=== PATIENT | male | born 1945 | race Caucasian/White ===

== ENCOUNTER 2017-03-31 05:48 | Inpatient (IN) | payer MEDICARE, BC ==
[2017-03-30 10:40] VITALS: BMI 26.9
[~2017-03-31] VITALS: Ht 188 cm; Wt 96.9 kg
[2017-03-31] VITALS (17 sets, daily range): BP systolic 98–133; BP diastolic 55–73; PULSE 62–78; RESP 14–18; Ht 188 cm; Wt 96.9 kg
[2017-03-31] MEDS ORDERED: LACTATED RINGER'S 1,000 ML IV* SCH (06:00)
[2017-03-31] MEDS ORDERED: TRANEXAMIC ACID 1,000 MG in SOD CHLORIDE 0.9% 100 ML IV ONE ×2 (06:00→08:30)
[2017-03-31] MEDS ORDERED: CEFAZOLIN 2 GM/50 ML (PMX) 50 ML IVPB SCH (06:00)
[2017-03-31] MEDS ORDERED: ALBU18HF INHALATION (06:32)
[2017-03-31] MEDS ORDERED: ATOR10TA65 PO (06:32)
[2017-03-31] MEDS ORDERED: LEVO175T2 PO (06:32)
[2017-03-31] MEDS ORDERED: MIDAZOLAM 1 MG/ML 2 ML INJ ONE (06:49)
[2017-03-31] MEDS ORDERED: FENTAnyl 50 MCG/ML VIAL ONE (06:49)
[2017-03-31] MEDS ORDERED: ROCURONIUM 50 MG INJ ONE ×2 (07:00→07:28)
[2017-03-31] MEDS ORDERED: LIDOCAINE 2% (SDV) 5 ML INJ ONE (07:00)
--- NOTE | 2017-03-31 07:04 | HPN ---
Date/Time of Note Date/Time of Note DATE: 03/31/17 TIME: 07:03 Interval H&P Admission Note Pt. seen H&P reviewed: No system changes VEGA AUSTIN MD Mar 31, 2017 07:04
[2017-03-31] MEDS: LACTATED RINGER'S 1,000 ML IV SCH ×3 (07:05→22:07)
[2017-03-31] MEDS ORDERED: POLYMYXIN/BACITRACIN 1L IRRIG ONE (07:11)
[2017-03-31] MEDS ORDERED: PROPOFOL 20 ML ONE (07:28)
--- NOTE | 2017-03-31 07:28 | PDOCDIS ---
Discharge Instructions DIAGNOSIS Discharge Diagnosis S/P RIGHT TOTAL SHOULDER ARTHROPLASTY CONDITION Patient Condition: Stable HOME CARE INSTRUCTIONS: Diet Instructions: Regular ACTIVITY: Activity Restrictions: Rest between Activity Avoid heavy lifting No Weight Bearing Bathing Restrictions: ShowerActivity Restrictions Comment: NO LIFT WITH SURGICAL ARM. MUST WEAR SLING IN PUBLIC & WHILE SLEEPING X 6WK FOLLOW UP/APPOINTMENTS Follow-up Plan SCHEDULED PREOPERATIVELY WITH DR AUSTIN, 1-2 WEEKS VEGA AUSTIN MD Mar 31, 2017 07:28
[2017-03-31] MEDS ORDERED: HYDROmorphONE 1 MG/ML SYG IV PRN (08:00)
[2017-03-31] MEDS ORDERED: ONDANSETRON 4 MG INJ IV PRN ×2 (08:00→12:00)
[2017-03-31] MEDS ORDERED: EPINEPHrine 0.1 MG/ML SYG INJ ONE (08:21)
[2017-03-31] MEDS ORDERED: BUPIVACAINE 0.25% (MPF) 30 ML INJ INJ ONE (08:21)
[2017-03-31] MEDS ORDERED: BACITRACIN 50000 UNITS INJ IRR ONE (08:21)
[2017-03-31] MEDS ORDERED: CLONIDINE 1000 MCG INJ INJ ONE (08:21)
[2017-03-31] MEDS ORDERED: GENTAMICIN 80 MG INJ INJ ONE (08:21)
[2017-03-31] MEDS ORDERED: KETOROLAC 30 MG INJ INJ ONE (08:21)
[2017-03-31] MEDS ORDERED: morphine SULFATE/PF (10 MG/10 ML) INJ INJ ONE (08:21)
[2017-03-31] MEDS ORDERED: GENTAMICIN 80 MG INJ ONE ×2 (08:30→08:54)
[2017-03-31] MEDS ORDERED: morphine SULFATE/PF (10 MG/10 ML) INJ ONE (08:31)
[2017-03-31] MEDS ORDERED: KETOROLAC 30 MG INJ ONE (08:31)
[2017-03-31] MEDS ORDERED: CLONIDINE 1000 MCG INJ ONE (08:32)
[2017-03-31] MEDS ORDERED: BUPIVACAINE 0.25% (MPF) 30 ML INJ ONE (08:32)
[2017-03-31] MEDS ORDERED: EPINEPHrine 0.1 MG/ML SYG ONE (08:34)
[2017-03-31] MEDS ORDERED: LABETALOL HCL 20MG INJ ONE (08:50)
[2017-03-31] MEDS ORDERED: ACETAMINOPHEN 500 MG TAB PO PRN (09:00)
[2017-03-31] MEDS ORDERED: ZOLPIDEM 5 MG TAB PO PRN (09:00)
[2017-03-31] MEDS ORDERED: DIPHENHYDRAMINE 50 MG INJ IV PRN ×2 (09:00→12:00)
[2017-03-31] MEDS ORDERED: MAGNESIUM HYDROXIDE 30ML CUP PO PRN (09:00)
[2017-03-31] MEDS ORDERED: DEXAMETHASONE 4 MG/ML 1 ML INJ ONE (09:10)
[2017-03-31] MEDS ORDERED: ONDANSETRON 4 MG INJ ONE (09:12)
--- NOTE | 2017-03-31 09:47 | RADRPT ---
PROCEDURE: XR Chest. CLINICAL INDICATION: Preop TECHNIQUE: AP Portable chest. COMPARISON: No pertinent prior examinations were submitted for comparison. FINDINGS: Clips are seen in the neck. The cardiomediastinal silhouette is normal. The aortic arch is mildly calcified. No focal consolidat ion, pleural effusion or pneumothorax is seen. There is mild bibasilar atelectasis. The osseous str uctures are intact. IMPRESSION: No radiographic evidence of acute cardiopulmonary disease. Physician Mary Date Time Electronically viewed and signed by Physician Mary on 03/31/2017 07:19 CS/
[2017-03-31] MEDS ORDERED: CEFAZOLIN 1 GM/50 ML (PMX) 50 ML IVPB SCH (10:00)
[2017-03-31] MEDS ORDERED: ROPIVACAINE 0.5 % 30 ML VIAL ONE (10:42)
--- NOTE | 2017-03-31 11:30 | OPPN ---
Date/Time of Note Date/Time of Note DATE: 03/31/17 TIME: 11:19 Operative Report Preoperative Diagnosis Right shoulder osteoarthritis Postoperative Diagnosis Same Operation/Procedure Performed Right total shoulder arthroplasty Surgeon MD Alayna assisted living director MD [place] Anesthesia: general Estimated blood loss: 10 - 50 ml's Transfusion Required none Specimen none Grafts/Implants none Complications none VEGA AUSTIN MD Mar 31, 2017 11:30
[2017-03-31] MEDS: PROVENTIL HFA 6.7GM INHALER INH SCH ×3 (11:47→20:15)
[2017-03-31] MEDS ORDERED: LABETALOL HCL 20MG INJ IV PRN (12:00)
[2017-03-31] MEDS ORDERED: hydrALAzine 20 MG INJ IV PRN (12:00)
[2017-03-31] MEDS ORDERED: HYDROmorphONE (0.2 MG/ML) 10ML SYG IV PRN ×3 (12:00)
[2017-03-31] MEDS ORDERED: EPHEDrine SULFATE 50 MG/5 ML SYG IV PRN (12:00)
[2017-03-31] MEDS ORDERED: OXYCODONE/ACETAMINOPHEN (5/325) TAB PO PRN ×2 (12:00)
[2017-03-31] MEDS ORDERED: FENTAnyl 50 MCG/ML VIAL IV PRN ×3 (12:00)
[2017-03-31] MEDS ORDERED: MEPERIDINE 25 MG INJ IV PRN (12:00)
[2017-03-31] MEDS ORDERED: KETOROLAC 30 MG INJ IV PRN (12:00)
[2017-03-31] MEDS ORDERED: METOCLOPRAMIDE 10 MG INJ ONE (12:18)
[2017-03-31] MEDS ORDERED: METOCLOPRAMIDE 10 MG INJ IV PRN (12:30)
--- NOTE | 2017-03-31 12:47 | OPR ---
DATE OF OPERATION: 03/31/2017 PREOPERATIVE DIAGNOSIS: End-stage right shoulder osteoarthritis. POSTOPERATIVE DIAGNOSIS: End-stage right shoulder osteoarthritis. OPERATION PERFORMED: Right total shoulder arthroplasty (15- degree PerFORM + augmented glenoid, uncemented Simpliciti head). SURGEON: MD Alayna. OCEANOGRAPHER GEOLOGICAL: Jc Ibrahim MD. ANESTHESIA: General endotracheal with regional block. ANESTHESIOLOGIST: Dr. Obed Tate. ESTIMATED BLOOD LOSS: 200 cc. COMPLICATIONS: None. SPECIMENS: None. IMPLANTS: Livemap Simplicity head, 50 mm x 19 mm, size large Cortiloc 15-degree glenoid augment poly. INDICATIONS: Pavel, he goes by Vic, is a 71-year-old male with a long history of right shoulder pain and disability. X-rays and MRI scan revealed end-stage osteoarthritis with an intact rotator cuff. 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 After failing conservative measures, he elected to proceed with surgical intervention. Given the retroversion of his glenoid, he understands that he would require a more complex procedure with an augmented glenoid. OPERATIVE PROCEDURE: Patient was brought to the operating room and placed supine on the operating table. An uncomplicated regional block had been placed by the anesthesiologist. He was given prophylactic antibiotics and tranexamic acid. He was placed in the beach-chair position and head was carefully stabilized. The right upper extremity was prepped and draped in sterile surgical fashion and placed in a Spider2 arm mabry. The correct surgical site had been identified and marked preoperatively. A time-out was called. A standard deltopectoral incision was made and carried down to the deltopectoral interval. The cephalic vein was identified and taken laterally. It was ligated later in the case. A subdeltoid release was performed and the rotator cuff was noted to be intact. The upper 1.5 cm of the pectoralis was released exposing the biceps tendon. The biceps tendon was scarred in. It had partial tearing. It was tenodesed to the upper border of the pectoralis with a #2 FiberWire. The proximal biceps was excised. The bicipital groove was opened up proximally and then extended medially into the rotator interval exposing the subscapularis. The subscapularis was removed using a peel technique and the shoulder was externally rotated until it was dislocated. There were large osteophytes on the humeral head with advanced osteoarthritis. Using a rongeur and a curved osteotome, these osteophytes were removed, exposing the normal [place] neck of the glenoid. Using an oscillating saw, a humeral head cut was performed in its standard anatomic position in approximately 25 degrees of retroversion. The quality of the proximal bone was very good and the decision was then made to place a stemless Simpliciti implant. A guide pin was placed into the center of the humeral metaphysis. It was reamed down until it was flat. It was broached up to a size 2 nucleus and a head protector was placed. Attention was then turned to the glenoid. There were several loose bodies in the glenohumeral joint, which were removed. The labrum was also excised circumferentially including the stump of the biceps. There was a large osteophyte off the anterior glenoid, which had been noted on the CT scan, this was removed. Other osteophytes were also removed around the glenoid as able. The glenoid was noted to have retroversion as expected. The upper subscapularis was released and an anterior capsular release was performed around to the 6 o'clock position but not further. Using the Livemap pin guide, an essential pin was placed into the glenoid. The paleo-glenoid was then reamed with a size large, removing approximately 3-4 mm of bone anteriorly until the reaming had gone just past the midpoint where the pin was. At this point, the offset augment reamer in 15 degrees was placed and the posterior glenoid was reamed until it was flat as well. A trial was placed and noted to fit nicely. The peripheral peg holes were drilled and cement was mixed. The shoulder was copiously irrigated with pulse lavage throughout the case. Local anesthetic was also injected throughout the case into the soft tissues. Cement was injected into all 3 peg holes. The posterior peg hole penetrated out into the soft tissues, so this peg hole was not impacted. A size large Cortiloc 15-degree augmented glenoid was then impacted without complication. It had an excellent fit. Attention was returned to the humerus. A size 3 nucleus Simpliciti was impacted without complication, followed by drilling of 3 drill holes behind the lesser tuberosity. Three No. 5 sutures were than passed across these drill holes for later repair of the subscapularis. A size 50 x 19 humeral head was inserted and impacted. The shoulder was reduced and noted to have excellent stability with 50 percent posterior subluxation, but no dislocation. The subscapularis was repaired with simple sutures from a No. 5 sternal wire augmented with #2 FiberWires above and below. A single stitch was placed in the lateral aspect of the rotator interval. A spinal needle was percutaneously placed intra-articularly for later injection of gentamicin. The shoulder was again copiously irrigated. The deltopectoral interval was closed with a running Vicryl suture, followed by standard layered skin closure. Once the skin was closed, a 106 g of gentamicin was injected intra- articularly for further antibiotic prophylaxis. Dermabond was placed followed by a sterile dressing. The patient was placed in sling and brought to the recovery room in stable condition. There were no complications. The assistance of Dr. Ibrahim was essential throughout this complex case to help position the shoulder in state, help and hold and retract with management of soft tissues and placement of the implants. A skilled nursing home assistant administrator is always necessary in these cases. Dictated By: Wiliam Catalan MD /russell/salma /Document#: [id number]
[2017-03-31] MEDS ORDERED: ONDANSETRON 4 MG INJ IV STA (15:46)
[2017-03-31] MEDS: SENNA/DOCUSATE NA (8.6MG/50MG) TAB PO SCH ×2 (15:54→20:04)
[2017-03-31] MEDS: CEFAZOLIN 1 GM/50 ML (PMX) 50 ML IVPB SCH (20:04)
[2017-03-31] MEDS ORDERED: ATORVASTATIN 10 MG TAB PO SCH (21:00)
[2017-04-01 01:44] VITALS: BP 115/65; PULSE 77; RESP 18
[2017-04-01] MEDS ORDERED: ALBUTEROL 18 GM INHALER INH SCH (02:00)
[2017-04-01] MEDS: OXYCODONE/ACETAMINOPHEN (5/325) TAB PO PRN ×2 (04:14→09:11)
[2017-04-01] MEDS: CEFAZOLIN 1 GM/50 ML (PMX) 50 ML IVPB SCH (04:28)
[2017-04-01] MEDS: LACTATED RINGER'S 1,000 ML IV SCH (06:42)
[2017-04-01] MEDS ORDERED: LEVOTHYROXINE 175 MCG TAB PO SCH (07:00)
[2017-04-01 07:25] VITALS: BP 106/59; RESP 20
--- NOTE | 2017-04-01 08:30 | PN ---
Date/Time of Note Date/Time of Note DATE: 04/01/17 TIME: 08:18 Assessment/Plan VTE Prophylaxis VTE Prophylaxis Intervention: ambulation, other Lines/Catheters IV Catheter Type (from Nrsg): [place] line still needed: No Urinary Cath still in place: No Assessment/Plan Assessment/Plan Pt is s/p R TSA on 03/31 doing well this morning - NWB RUE, sling with ambulation - PT/OT: gentle ROM shoulder pendulum, elbow, and wrist exercises - PO percocet prn pain upon discharge, wean IV pain meds - Nausea improved this morning, advance diet as tolerated - D/C home today - Return to clinic for post-op check as scheduled Subjective 24 Hr Interval Summary Free Text/Dictation Patient doing well s/p Right total shoulder arthroplasty 03/31/17. Nausea improved. Intermittent pain overnight, improving with PO regimen Constitutional: No chills, No diaphoresis, No disoriented, No febrile, No improved, No no complaints, No other, No poor po, No requiring IVF, No requiring O2 Respiratory: No cough, No no complaints, No other, No pain, No pleuritic pain, No shortness of breath, No sputum, No wheezing Cardiovascular: No chest pain, No edema, No lightheadedness, No no complaints, No orthopenea, No other, No palpitations, No paroxysmal nocturnal dyspnea Gastrointestinal: No blood, No constipation, No decreased appetite, No diarrhea , No flatus, No nausea, No no complaints, No other, No pain, No passing stool, No vomiting Musculoskeletal: No back pain, No bone/joint pain, No neck pain, No no complaints, No other, No restricted range of motion, No swelling Skin: bruising Psychological: No anxiety, No confusion, No depression, No nl mood/affect, No no complaints, No other, No suicidal Exam/Review of Systems Vital Signs Vitals Vital Signs Date Time Temp Pulse Resp B/P Pulse Ox O2 Delivery O2 Flow Rate FiO2 04/01/17 07:25 98.5 73 20 106/59 94 04/01/17 01:44 Room Air 03/31/17 14:18 2.0 Intake and Output 03/31/17 03/31/17 04/01/17 14:59 22:59 06:59 Intake Total 120 ml 1050 ml 1450 ml Output Total 250 ml 1300 ml Balance -130 ml 1050 ml 150 ml Exam Vitals stable overnight RUE: sling in place Dressing c/d/i Mild ecchymosis, no erythema or signs of infection Distally NVI Medications Medications Current Medications Atorvastatin Calcium 10 mg 10 mg QHS PO Last administered on 03/31/17 20:04; Admin Dose 10 MG; Start 03/31/17 at 21:00 Lactated Ringer's (Lr) 1,000 ml @ 125 mls/hr Q8H IV Last administered on 15:56; Admin Dose 125 MLS/HR; Start 03/31/17 at 07:05 Senna/Docusate Sodium (Senokot-S) 1 tab BID PO ; Start 03/31/17 at 09:00 Magnesium Hydroxide (Milk Of Mag) 30 ml BID PRN PO CONSTIPATION; Start at 09:00 Acetaminophen (Tylenol Tab) 1,000 mg Q4H PRN PO TEMP GREATER THAN 100.4F; Start 03/31/17 at 09:00 Oxycodone/ Acetaminophen (Percocet (5/ 325)) 1 tab Q4H PRN PO PAIN LEVEL 1-5 Last administered on 04/01/17 04:14; Admin Dose 1 TAB; Start 03/31/17 at 08:00 Hydromorphone HCl (Dilaudid) 0.5 mg Q4H PRN IV PAIN LEVEL 1-5 Last administered on 04/01/17 06:39; Admin Dose 0.5 MG; Start 03/31/17 at 08:00 Ondansetron HCl (Zofran Inj) 4 mg Q6H PRN IV NAUSEA AND/OR VOMITING; Start at 08:00 Diphenhydramine HCl (Benadryl) 25 mg Q6H PRN IV PRURITUS; Start 03/31/17 at 09: 00 VEGA AUSTIN MD Apr 01, 2017 08:28
[2017-04-01] MEDS: SENNA/DOCUSATE NA (8.6MG/50MG) TAB PO SCH (09:07)
== END 2017-04-01 13:48 | disposition home or self-care (01) | DRG 483 ==
LOC: SDS 05:48 → SUR 05:48 → MS1 13:54 → REC 15:08 → MS1 15:08
PROVIDERS: ADMIT Orthopaedic Surgery Sports Medicine; ATTEND Orthopaedic Surgery Sports Medicine
PROC: 0RRJ0JZ Replacement of Right Shoulder Joint with Synthetic Substitute, Open Approach (ICD-10-PCS; principal; 2017-03-31 07:30)
DX: M19.011 Primary osteoarthritis, right shoulder (principal); E03.9 Hypothyroidism, unspecified; J45.909 Unspecified asthma, uncomplicated; J30.9 Allergic rhinitis, unspecified
CPT/HCPCS: 71010; 88304; 88311; 97167; 97535; J0171; J0690; J0735; J1100; J1170; J1580; J1885; J2250; J2274; J2405; J2765; J2795; J3010; J7120